=== PATIENT | male | born 1980 | race Hispanic/Latino ===

== ENCOUNTER 2021-06-21 12:30 | Emergency (ER) | payer SELFPAY ==
[2021-06-21 12:34] VITALS: BP 134/75; PULSE 78; RESP 14; TEMP 36.3; O2SAT 97; BMI 27.4
[2021-06-21] MEDS: TET,DIPH,PERTUSS(ACELL),VAC/PF 0.5 ML SYRINGE IM (12:47)
[2021-06-21] MEDS: FLUORESCEIN 1 MG STRIP EYE-LEFT (12:47)
[2021-06-21] MEDS: PROPARACAINE 0.5% OPHTH SOL 1 DROPS EYE-LEFT (12:47)
--- NOTE | 2021-06-21 12:54 | ED_ITS ---
HPI - Eye Problem <Alfred Jaffe PA-C - Last Filed: 06/21/21 13:55> General Chief complaint: Eye Problems Stated complaint: piece of metal in left eye Time Seen by Provider: 06/21/21 12:42 Source: patient Mode of arrival: Ambulatory Limitations: no limitations History of Present Illness HPI Narrative: Presents today with chief complaint of left eye discomfort and metal stuck in his eye. 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 He irrigated it out with water but this has not helped his symptoms. He is still able to see normally and denies any significant vision changes. He has no other acute concerns or complaints at this time. Unknown last tetanus. Related Data Allergies Allergy/AdvReac Type Severity Reaction Status Date / Time No Known Drug Allergies Allergy Verified 06/21/21 12:37 Review of Systems <Alfred Jaffe PA-C - Last Filed: 06/21/21 13:55> Review of Systems Narrative: As per HPI Patient History <Alfred Jaffe PA-C - Last Filed: 06/21/21 13:55> Social History Smoking Status: Current every day smoker Smoking Status: Current every day smoker alcohol intake frequency: holidays/special occasions only Substance Use Type: does not use Exam <Alfred Jafef PA-C - Last Filed: 06/21/21 13:55> Narrative Exam Narrative: Exam Narrative: Const General: cooperative, healthy appearing, comfortable, no acute distress, well developed and well groomed Nutritional Appearance: average body habitus Orientation: alert and oriented x3 HENMT Head: normal to inspection and atraumatic Ears: hearing grossly normal bilaterally Nose: external nose normal and nares normal Face and sinus: normal facial exam Eyes: Periorbital findings grossly normal, left-sided conjunctival injection noted. Foreign body visualized in the medial aspect of the iris near the limbus at 9:00 oclock position. PERRLA, EOMI. Neck Neck: normal visual inspection and supple Resp Effort & Inspection: normal respiratory effort, able to speak in complete sentences, no audible wheezes, not labored, no nasal flaring and no respiratory distress Neuro General: alert, oriented x3, gait normal, tone normal and moves all extremities Cognition: normal cognition Speech: speech normal Gait: normal gait Psych Appearance: grossly normal and well kempt Mental Status: mental status grossly normal Speech and Movement: speech and movement normal Mood: congruent mood Affect: normal affect Initial Vital Signs Initial Vital Signs: Vital Signs Temperature 97.3 F L 06/21/21 12:34 Pulse Rate 78 06/21/21 12:34 Respiratory Rate 14 06/21/21 12:34 Blood Pressure 134/75 06/21/21 12:34 Pulse Oximetry 97 06/21/21 12:34 <DO Ese Anaya Last Filed: 06/23/21 15:36> Initial Vital Signs Initial Vital Signs: Vital Signs Temperature 97.3 F L 06/21/21 12:34 Pulse Rate 78 06/21/21 12:34 Respiratory Rate 14 06/21/21 12:34 Blood Pressure 134/75 06/21/21 12:34 Pulse Oximetry 97 06/21/21 12:34 Course <Alfred Jaffe PA-C - Last Filed: 06/21/21 13:55> Course Course Narrative: We called and spoke with Dr. Liu burns at the ophthalmology clinic. He recommended that the patient walk over to the clinic now it so that he can evaluate them at this time. We will discharge the patient from the emergency department and have them follow up with Ophthalmology directly. Orders Ordered: Discontinued Medications Diphtheria/Tetanus/Acell Pertussis (Tet,Diph,Pertuss(Acell),Vac/Pf 0.5 Ml Syringe) 0.5 ml IM .ONCE ONE Stop: 06/21/21 12:44 Last Admin: 06/21/21 12:47 Dose: 0.5 ml Documented by: MOHAN Fluorescein Sodium (Fluorescein 1 Mg Strip) 1 mg EYE-LEFT NOW ONE Stop: 06/21/21 12:44 Last Admin: 06/21/21 12:47 Dose: 1 mg Documented by: MOHAN Proparacaine HCl (Proparacaine 0.5% Ophth Keturah) 1 drops EYE-LEFT NOW ONE Stop: 06/21/21 12:43 Last Admin: 06/21/21 12:47 Dose: 1 drop Documented by: MOHAN Vital Signs Vital signs: Vital Signs - 8 hr 06/21/21 12:34 06/21/21 13:25 Temperature 97.3 F L Pulse Rate 78 76 Respiratory Rate 14 17 Blood Pressure 134/75 110/64 Pulse Oximetry 97 99 <DO Ese Anaya Last Filed: 06/23/21 15:36> Orders Ordered: Discontinued Medications Diphtheria/Tetanus/Acell Pertussis (Tet,Diph,Pertuss(Acell),Vac/Pf 0.5 Ml Syringe) 0.5 ml IM .ONCE ONE Stop: 06/21/21 12:44 Last Admin: 06/21/21 12:47 Dose: 0.5 ml Documented by: MOHAN Fluorescein Sodium (Fluorescein 1 Mg Strip) 1 mg EYE-LEFT NOW ONE Stop: 06/21/21 12:44 Last Admin: 06/21/21 12:47 Dose: 1 mg Documented by: MOHAN Proparacaine HCl (Proparacaine 0.5% Ophth Keturah) 1 drops EYE-LEFT NOW ONE Stop: 06/21/21 12:43 Last Admin: 06/21/21 12:47 Dose: 1 drop Documented by: MOHAN Vital Signs Vital signs: Vital Signs - 8 hr 06/21/21 12:34 06/21/21 13:25 Temperature 97.3 F L Pulse Rate 78 76 Respiratory Rate 14 17 Blood Pressure 134/75 110/64 Pulse Oximetry 97 99 MDM - Eye Problem <Alfred Jaffe PA-C - Last Filed: 06/21/21 13:55> MDM Narrative Medical decision making narrative: Extraocular movements are normal of the eye. Foreign body does not seem to penetrate into the eye and there is no evidence globe rupture. No fluorescein uptake noted. He will go directly over to Ophthalmology for definitive care. Discharge Plan Departure Patient Disposition: Home Clinical Impression: Acute foreign body of left cornea Qualifiers: Encounter type: initial encounter Qualified Code(s): T15.02XA - Foreign body in cornea, left eye, initial encounter Activity Restrictions/Additional Instructions: It was very nice to meet who this afternoon. Please go directly over to the airset caster and they will help remove the rest of the foreign body that we were not able to get out here today. They are expecting you at this time. Thank you Alfred Jaffe PA-C <My Sanchez DO - Last Filed: 06/23/21 15:36> Cosign ED Attending Cosignature Attestation: I was immediately available in the department for consultation. Documentation has been reviewed.
[2021-06-21 13:25] VITALS: BP 110/64; PULSE 76; RESP 17; O2SAT 99
== END 2021-06-21 13:28 | disposition home or self-care (01) ==
PROVIDERS: Emergency Provider Physician Assistant
DX: T15.02XA Foreign body in cornea, left eye, initial encounter (principal); Z23 Encounter for immunization; X58.XXXA Exposure to other specified factors, initial encounter
CPT/HCPCS: 90471; 99283; 90715